=== PATIENT | male | born 1975 | race Caucasian/White ===

== ENCOUNTER → 2019-06-27 11:45 | Outpatient (REF) | payer BC, SELFPAY | LOC: ANHLAB 11:45 | PROVIDERS: PCP Family Medicine; Visit Provider Nurse Practitioner | DX: C44.519 Basal cell carcinoma of skin of other part of trunk (principal) | CPT/HCPCS: 88305 ==

== ENCOUNTER → 2019-07-12 08:07 | Outpatient (REF) | payer BC, SELFPAY | LOC: ANHLAB 08:07 | PROVIDERS: PCP Family Medicine; Visit Provider Nurse Practitioner Family | DX: C44.519 Basal cell carcinoma of skin of other part of trunk (principal) | CPT/HCPCS: 88305; 88331 ==